=== PATIENT | female | born 1985 | race Caucasian/White ===

== ENCOUNTER 2022-04-19 15:55 | Emergency (ER) | payer OTHER ==
[~2022-04-19] VITALS: Ht 157.5 cm; Wt 54.9 kg
[~2022-04-19 15:55] MED LIST: AMOXICILLIN200 MG; ZYRTEC5 MG
[2022-04-19] MEDS ORDERED: MIRALAX510 GM PO (19:42)
== END 2022-04-19 19:57 | disposition home or self-care (01) ==
LOC: ER 15:55
DX: K59.00 Constipation, unspecified (principal)